=== PATIENT | male | born 1975 | race Caucasian/White ===

== ENCOUNTER 2022-08-24 12:18 | Observation (INO) ==
[2022-08-24] MEDS ORDERED: METOPROLOL TARTRATE 25 MG TABLET PO STA (12:53)
[2022-08-24] MEDS ORDERED: hydrALAZINE 20 MG/1 ML VIAL IV STA ×2 (12:55→14:06)
[2022-08-24 12:59] LABS: Basophils # 0.1 10*3/uL (0.0-0.2); Basophils % 0.8 % (0.0-0.8); Eosinophils # 0.1 10*3/uL (0.0-0.87); Eosinophils % 0.9 % (0.00-10.9); Hematocrit 42.6 VOL% (42.0-52.0); Hemoglobin 14.7 GM/DL (14.0-18.0); Immature Granulocytes % 0.7 %; Immature Granulocytes Absolute 0.05 #; Lymphocytes % 26.3 % (21.2-54.2); Mean Corpuscular HGB Conc 34.5 GM/DL (32-36); Mean Corpuscular Volume 81.6 FL (87-102); Mean Platelet Volume 9.9 FL (9.6-12.0); Monocytes # 0.7 10*3/uL (0.11-0.8); Monocytes % 9.2 % (1.7-12.7); Neutrophils % 62.1 % (38.7-73.9); Platelet Count 314 T/CUMM (130-400); Red Blood Count 5.22 MC/CUMM (3.8-5.5); Red Cell Distribution Width 11.9 % (9.3-17.3); White Blood Count 7.6 T/CUMM (4-12)
[2022-08-24 13:24] LABS: RBC,Urine 1 /HPF (0-4); Urine Appearance Clear (Clear); Urine Color Yellow (Yellow)
[2022-08-24 13:25] LABS: Bilirubin,Urine Negative (Negative); Blood, Urine Trace mg/dL (Negative); Glucose,Urine (UA) Negative (Negative); Ketones,Urine Negative (Negative); Nitrite,Urine Negative (Negative); Protein,Urine Negative (Negative); Urine Specific Gravity < 1.005 (1.001-1.035); Urine Urobilinogen 0.2 eU/dL (<2.0); Urine pH 5.5 (4.5-8.0)
[2022-08-24 13:41] LABS: Albumin 4.3 G/DL (3.4-5.0); Bilirubin,Total 0.6 MG/DL (0.20-1.00); Calcium 9.3 MG/DL (8.5-10.1); Osmolality,Calculated 260.8 MOS/KG (273-304); Potassium 4.4 MMOL/L (3.5-5.1); Total Protein 7.4 G/DL (6.4-8.2)
[2022-08-24] MEDS ORDERED: MAGNESIUM SULF RIDER 2 GM/50 ML PREMIX IV PRN (14:50)
[2022-08-24] MEDS ORDERED: NITROGLYCERIN SL 0.4 MG TABLET SL PRN (14:50)
[2022-08-24] MEDS ORDERED: MAGNESIUM HYDROXIDE SUSP 30 ML UDCUP PO PRN (14:50)
[2022-08-24] MEDS ORDERED: POTASSIUM CHLORIDE 20 MEQ TABLET PO PRN ×2 (14:50)
[2022-08-24] MEDS ORDERED: MAGNESIUM SULF RIDER 4 GM/100 ML PREMIX IV PRN (14:50)
[2022-08-24] MEDS ORDERED: ONDANSETRON 4 MG/2 ML VIAL IV PRN (14:50)
[2022-08-24] MEDS ORDERED: MORPHINE 2 MG/1 ML SYRINGE IV PRN (14:50)
[2022-08-24] MEDS ORDERED: ENOXAPARIN 40 MG/0.4 ML SYRINGE SUBCUT SCH (15:00)
[2022-08-24] MEDS: INSULIN REGULAR 100 UNIT/ML SUBCUT SCH ×2 (17:15→21:53)
[2022-08-24] MEDS ORDERED: METOPROLOL TARTRATE 25 MG TABLET PO SCH (21:00)
[2022-08-24] MEDS ORDERED: ROSUVASTATIN 10 MG TABLET PO SCH (21:00)
[2022-08-25 05:55] LABS: Basophils # 0.1 10*3/uL (0.0-0.2); Basophils % 0.7 % (0.0-0.8); Eosinophils # 0.1 10*3/uL (0.0-0.87); Hematocrit 43.3 VOL% (42.0-52.0); Hemoglobin 14.4 GM/DL (14.0-18.0); Immature Granulocytes % 0.5 %; Immature Granulocytes Absolute 0.05 #; Lymphocytes # 1.9 10*3/uL (1.4-4.0); Lymphocytes % 20.6 % (21.2-54.2); Mean Corpuscular HGB Conc 33.3 GM/DL (32-36); Mean Corpuscular Volume 83.9 FL (87-102); Mean Platelet Volume 10.1 FL (9.6-12.0); Monocytes % 10.5 % (1.7-12.7); Neutrophils % 66.7 % (38.7-73.9); Platelet Count 297 T/CUMM (130-400); Red Blood Count 5.16 MC/CUMM (3.8-5.5); Red Cell Distribution Width 12.2 % (9.3-17.3); White Blood Count 9.2 T/CUMM (4-12)
[2022-08-25 07:48] LABS: Cholesterol 121 MG/DL (50-200); HDL Cholesterol 58 MG/DL (40-60); Risk Ratio 2.09; Triglycerides 96 MG/DL (2-150); VLDL Cholesterol 19.2 MG/DL
[2022-08-25 07:49] VITALS: BP 162/91
[2022-08-25] MEDS: INSULIN REGULAR 100 UNIT/ML SUBCUT SCH (07:54)
[2022-08-25 07:55] LABS: INR 0.9; PT Patient Result 10.4 SECS (10.1-12.1); Partial Thromboplastin Time 26.6 SECS (23.7-32.9)
[2022-08-25] MEDS ORDERED: cloNIDine 0.1 MG TABLET PO PRN (08:12)
[2022-08-25] MEDS ORDERED: VALSARTAN 160 MG TABLET PO SCH (09:00)
[2022-08-25] MEDS ORDERED: PANTOPRAZOLE 40 MG TABLET PO SCH (09:00)
[2022-08-25] MEDS ORDERED: ASPIRIN EC 81 MG TABLET PO SCH (09:00)
[2022-08-25] MEDS ORDERED: amLODIPine 5 MG TABLET PO SCH (09:00)
[2022-08-25] MEDS ORDERED: carvediloL 6.25 MG TABLET PO SCH (09:00)
== END 2022-08-25 10:55 | disposition home or self-care (01) ==
LOC: N.ED 12:18 → SUATTDRO 14:50 → N.EDINP 14:50 → INTOOBSV 14:50 → N.EDINP 16:00 → N.TELEN 16:30
PROVIDERS: ADMIT Emergency Medicine; ATTEND Internal Medicine